=== PATIENT | female | born 1965 | race Two or more races ===

== ENCOUNTER 2024-04-17 19:29 | Inpatient (IN) | payer MEDICAID, OTHER ==
[~2024-04-17] VITALS: Ht 170.2 cm; Wt 105.8 kg
[2024-04-17 20:35] LABS: Basophils # (auto) 0 10 ^3/uL (0-0.2); Basophils % (auto) 0.4 % (0.0-2.0); Eosinophils # (auto) 0.1 10 ^3/uL (0-0.8); Eosinophils % (auto) 1.4 % (0.0-7.0); Hematocrit 45.6 % (36.0-46.0); Hemoglobin 15.5 g/dL (12.2-16.2); Lymphocytes # (auto) 1.4 10 ^3/uL (0.4-5.4); Lymphocytes % (auto) 14.4 % (10.0-50.0); Mean Corpuscular Hemoglobin 31.8 pg (28.0-32.0); Mean Corpuscular Volume 93.6 fL (80.0-100.0); Monocytes # (auto) 0.5 10 ^3/uL (0-1.3); Monocytes % (auto) 5.1 % (0.0-12.0); Neutrophils # (auto) 7.5 10 ^3/uL (1.6-8.6); Neutrophils % (auto) 78.7 % (37.0-80.0); Nucleated Red Blood Cells % 0.1 %; Platelet Count (auto) 230 10^3/uL (140-450); Red Blood Cells 4.87 10^6/uL (4.0-5.20); White Blood Cell 9.5 10^3/uL (4.4-10.8)
[2024-04-17 20:48] LABS: Chloride 111 mmol/L (98-107); Potassium 3.6 mmol/L (3.5-5.1); Sodium 144 mmol/L (136-145)
[2024-04-17 20:49] LABS: Anion Gap 9 (5-15); Carbon Dioxide 24 mmol/L (20-31)
[2024-04-17 20:50] LABS: Calcium 10.1 mg/dL (8.7-10.4)
[2024-04-17 20:54] LABS: Glucose 128 mg/dL (74-106)
[2024-04-17 20:55] LABS: BUN/Creatinine Ratio 13.3 (10.0-20.0); Blood Urea Nitrogen 13 mg/dL (9-23)
[2024-04-17] MEDS: MORPHINE SULFATE 4 MG/ML SYR/VIAL IV ONE (21:26)
[2024-04-17] MEDS: ONDANSETRON HCL 4 MG/2 ML VIAL IV ONE (21:26)
[2024-04-17] MEDS: SODIUM CHLORIDE 0.9% 1,000 ML IV ONE (21:27)
[2024-04-17] MEDS ORDERED: hydrALAZINE HCL 20 MG/ML VL IV PRN (23:15)
[2024-04-17] MEDS ORDERED: NITROGLYCERIN 0.4 MG SL TAB SL PRN (23:15)
[2024-04-17] MEDS ORDERED: MORPHINE SULFATE INJ 2 MG/ml SYRG IV PRN ×2 (23:15)
[2024-04-17] MEDS ORDERED: ONDANSETRON HCL 4 MG/2 ML VIAL IV PRN (23:15)
[2024-04-17] MEDS: FUROSEMIDE 40 MG/4 ML VIAL IV ONE (23:58)
[2024-04-18] VITALS (7 sets, daily range): BP systolic 117–149; BP diastolic 71–82; PULSE 57–69; RESP 14–19; TEMP 97.5–98.3; O2SAT 94–96
[2024-04-18 02:00] LABS: Urine WBC None Seen /hpf (0 - 5)
[2024-04-18 02:22] LABS: Urine Bacteria FEW /hpf (None Seen); Urine Blood Negative /uL (Negative); Urine Clarity Clear (Clear); Urine Protein, UAD Negative (Negative); Urine Specific Gravity 1.005 (1.001-1.035); Urine Urobilinogen Normal (Negative)
[2024-04-18 02:29] LABS: Urine Color Straw (Yellow)
[2024-04-18] MEDS: HYDROcodone-ACET 5/325MG TAB PO PRN (03:25)
[2024-04-18] MEDS ORDERED: IBUP-1453 PO (03:58)
[2024-04-18] MEDS: SODIUM CHLOR 0.9% PF (SALINE LOCK) 10ML VIAL/SYR IV SCH (05:38)
[2024-04-18 06:14] LABS: Basophils # (auto) 0 10 ^3/uL (0-0.2); Basophils % (auto) 0.4 % (0.0-2.0); Eosinophils # (auto) 0.1 10 ^3/uL (0-0.8); Eosinophils % (auto) 0.9 % (0.0-7.0); Hematocrit 44.1 % (36.0-46.0); Hemoglobin 14.8 g/dL (12.2-16.2); Lymphocytes # (auto) 1.6 10 ^3/uL (0.4-5.4); Lymphocytes % (auto) 16.4 % (10.0-50.0); Mean Corpuscular Hemoglobin 31.9 pg (28.0-32.0); Mean Corpuscular Hgb Conc. 33.6 g/dL (32.0-36.0); Monocytes # (auto) 0.5 10 ^3/uL (0-1.3); Neutrophils # (auto) 7.5 10 ^3/uL (1.6-8.6); Neutrophils % (auto) 77.3 % (37.0-80.0); Nucleated Red Blood Cells % 0.1 %; Platelet Count (auto) 205 10^3/uL (140-450); Red Blood Cells 4.64 10^6/uL (4.0-5.20); Red Cell Distribution Width 13.9 % (11.8-14.3); White Blood Cell 9.7 10^3/uL (4.4-10.8)
[2024-04-18 06:31] LABS: Alanine Aminotransferase 14 U/L (7-40); Alkaline Phosphatase 102 U/L (46-116); Anion Gap 9 (5-15); BUN/Creatinine Ratio 9.6 (10.0-20.0); Blood Urea Nitrogen 9 mg/dL (9-23); Calcium 9.3 mg/dL (8.7-10.4); Carbon Dioxide 25 mmol/L (20-31); Chloride 108 mmol/L (98-107); Glucose 139 mg/dL (74-106); Sodium 142 mmol/L (136-145)
[2024-04-18 06:32] LABS: Albumin 4.4 g/dL (3.2-4.8); Aspartate Aminotransferase 18 U/L (13-40); Bilirubin, Total 0.6 mg/dL (0.2-1.0)
[2024-04-18 06:33] LABS: Total Protein 7.9 g/dL (5.7-8.2)
[2024-04-18] MEDS: INFLUENZA QUAD 2023-2024 0.5 ML SYRG IM ONE (09:00)
[2024-04-18] MEDS: ACETAMINOPHEN 325 MG TAB PO PRN (11:05)
[2024-04-19] VITALS (7 sets, daily range): BP systolic 113–151; BP diastolic 57–82; PULSE 58–71; RESP 18–19; TEMP 97.8–98.3; O2SAT 94–100
[2024-04-19 05:51] LABS: Basophils # (auto) 0 10 ^3/uL (0-0.2); Basophils % (auto) 0.5 % (0.0-2.0); Eosinophils # (auto) 0.2 10 ^3/uL (0-0.8); Eosinophils % (auto) 3.5 % (0.0-7.0); Hematocrit 42.8 % (36.0-46.0); Hemoglobin 14.4 g/dL (12.2-16.2); Lymphocytes # (auto) 2.5 10 ^3/uL (0.4-5.4); Lymphocytes % (auto) 35.6 % (10.0-50.0); Mean Corpuscular Hemoglobin 32.1 pg (28.0-32.0); Mean Corpuscular Hgb Conc. 33.7 g/dL (32.0-36.0); Mean Corpuscular Volume 95.2 fL (80.0-100.0); Monocytes # (auto) 0.5 10 ^3/uL (0-1.3); Monocytes % (auto) 7.2 % (0.0-12.0); Neutrophils # (auto) 3.7 10 ^3/uL (1.6-8.6); Neutrophils % (auto) 53.2 % (37.0-80.0); Platelet Count (auto) 183 10^3/uL (140-450); Red Cell Distribution Width 13.8 % (11.8-14.3); White Blood Cell 6.9 10^3/uL (4.4-10.8)
[2024-04-19 05:59] LABS: Calcium 9.3 mg/dL (8.7-10.4); Chloride 108 mmol/L (98-107); Potassium 3.4 mmol/L (3.5-5.1); Sodium 143 mmol/L (136-145)
[2024-04-19 06:00] LABS: Anion Gap 10 (5-15); Carbon Dioxide 25 mmol/L (20-31)
[2024-04-19 06:05] LABS: BUN/Creatinine Ratio 12.7 (10.0-20.0); Blood Urea Nitrogen 10 mg/dL (9-23); Glucose 95 mg/dL (74-106)
[2024-04-19] MEDS: DOCUSATE SOD 100 MG CAP PO PRN (10:28)
[2024-04-19] MEDS ORDERED: IBUPROFEN 400 MG TAB PO PRN (14:00)
[2024-04-19] MEDS: ACETAMINOPHEN 325 MG TAB PO SCH (14:55)
[2024-04-19] MEDS: POTASSIUM CHL 20 Meq TABLET PO ONE (14:55)
[2024-04-20] VITALS (8 sets, daily range): BP systolic 129–154; BP diastolic 67–94; PULSE 60–84; RESP 18–19; TEMP 97.9–98.6; O2SAT 93–100
[2024-04-20 07:36] LABS: Chloride 110 mmol/L (98-107); Potassium 3.8 mmol/L (3.5-5.1); Sodium 143 mmol/L (136-145)
[2024-04-20 07:37] LABS: Anion Gap 5 (5-15); Calcium 9.3 mg/dL (8.7-10.4); Carbon Dioxide 28 mmol/L (20-31)
[2024-04-20 07:42] LABS: BUN/Creatinine Ratio 14.5 (10.0-20.0); Blood Urea Nitrogen 11 mg/dL (9-23); Glucose 102 mg/dL (74-106)
[2024-04-21] VITALS (7 sets, daily range): BP systolic 128–161; BP diastolic 76–91; PULSE 50–65; RESP 15–19; TEMP 37; O2SAT 92–97
== END 2024-04-21 20:05 | disposition home or self-care (01) | DRG 351 ==
LOC: EDBD 19:29 → ER 19:29 → TELE 23:18 → TELE-WESTW 04-18 03:00
PROVIDERS: ADMIT Nurse Practitioner Family; ATTEND Student in an Organized Health Care Education/Training Program
PROC: 0GBG3ZX Excision of Left Thyroid Gland Lobe, Percutaneous Approach, Diagnostic (ICD-10-PCS; principal; 2024-04-21)
DX: M75.112 Incomplete rotator cuff tear or rupture of left shoulder, not specified as traumatic (principal); J81.1 Chronic pulmonary edema; R55 Syncope and collapse; E87.6 Hypokalemia; E04.1 Nontoxic single thyroid nodule; Z82.3 Family history of stroke; Z83.3 Family history of diabetes mellitus; W01.0XXA Fall on same level from slipping, tripping and stumbling without subsequent striking against object, initial encounter; Y92.009 Unspecified place in unspecified non-institutional (private) residence as the place of occurrence of the external cause
CPT/HCPCS: 36415; 70450; 71046; 72100; 72125; 73030; 73080; 73221; 76536; 76942; 80048; 80053; 81001; 83036; 84443; 84484; 85025; 97163; G0378; J2405

== ENCOUNTER 2024-06-18 22:53 | Inpatient (IN) | payer MEDICAID ==
[~2024-06-18] VITALS: Ht 167.6 cm; Wt 100.9 kg
[~2024-06-18 22:53] MED LIST: IBUP-1453 PO
[2024-06-18 23:52] LABS: Basophils # (auto) 0 10 ^3/uL (0-0.2); Basophils % (auto) 0.6 % (0.0-2.0); Eosinophils # (auto) 0.2 10 ^3/uL (0-0.8); Eosinophils % (auto) 2.6 % (0.0-7.0); Hematocrit 47.2 % (36.0-46.0); Hemoglobin 16.1 g/dL (12.2-16.2); Lymphocytes # (auto) 3.1 10 ^3/uL (0.4-5.4); Lymphocytes % (auto) 35.4 % (10.0-50.0); Mean Corpuscular Hemoglobin 32.5 pg (28.0-32.0); Mean Corpuscular Hgb Conc. 34.2 g/dL (32.0-36.0); Mean Corpuscular Volume 95.2 fL (80.0-100.0); Monocytes # (auto) 0.7 10 ^3/uL (0-1.3); Monocytes % (auto) 8.1 % (0.0-12.0); Neutrophils # (auto) 4.7 10 ^3/uL (1.6-8.6); Neutrophils % (auto) 53.3 % (37.0-80.0); Nucleated Red Blood Cells % 0.3 %; Platelet Count (auto) 232 10^3/uL (140-450); Red Blood Cells 4.95 10^6/uL (4.0-5.20); Red Cell Distribution Width 14.2 % (11.8-14.3); White Blood Cell 8.8 10^3/uL (4.4-10.8)
[2024-06-19 00:05] LABS: Alanine Aminotransferase 17 U/L (7-40); Albumin 4.8 g/dL (3.2-4.8); Anion Gap 7 (5-15); Aspartate Aminotransferase 15 U/L (13-40); BUN/Creatinine Ratio 21.3 (10.0-20.0); Blood Urea Nitrogen 17 mg/dL (9-23); Calcium 10.3 mg/dL (8.7-10.4); Carbon Dioxide 28 mmol/L (20-31); Chloride 107 mmol/L (98-107); Potassium 4.8 mmol/L (3.5-5.1); Sodium 142 mmol/L (136-145)
[2024-06-19 00:06] LABS: Bilirubin, Total 0.3 mg/dL (0.2-1.0)
[2024-06-19 00:22] LABS: Alkaline Phosphatase 118 U/L (46-116); Glucose 113 mg/dL (74-106); Total Protein 8.6 g/dL (5.7-8.2)
[2024-06-19 00:30] LABS: Lactic Acid w/Reflex 2.3 mmol/L (0.4-2.0)
[2024-06-19 00:55] LABS: Urine Bacteria FEW /hpf (None Seen); Urine Blood TRACE /uL (Negative); Urine Budding Yeast OCCASIONAL /hpf (None Seen); Urine Clarity Clear (Clear); Urine Color Light-Yellow (Yellow); Urine Mucus FEW (None Seen); Urine Protein, UAD Negative (Negative); Urine Specific Gravity 1.026 (1.001-1.035); Urine Urobilinogen Normal (Negative); Urine WBC <1 /hpf (0 - 5)
[2024-06-19 01:00] VITALS: PULSE 72; RESP 18; O2SAT 96
[2024-06-19] MEDS: cloNIDine HCL 0.1 MG TAB PO ONE (01:15)
[2024-06-19 01:31] LABS: Lipase 54 U/L (12-53)
[2024-06-19] MEDS ORDERED: SODIUM CHLORIDE 0.9% 1,000 ML IV ONE (01:45)
--- NOTE | 2024-06-19 02:24 | ED.PDOC ---
HPI Comments This patient is a morbidly obese 58-year-old female who arrives to the ED today for evaluation of dizziness, leg pain and headache since this morning due to elevated blood pressure concerns. Patient states she has had hypertension in the past but has not taken medication forward and quite some time. Patient states it blood pressure this morning was 200+ over 120+. At arrival, patient's best blood pressure was 192/99. Patient denies any fever nausea or vomiting. Chief Complaint: High Blood Pressure Time Seen by MD: 23:13 Primary Care Provider: NONE Reviewed Notes: Nurses Notes Allergies: Coded Allergies: NO KNOWN ALLERGIES (Unverified , 04/17/24) Home Meds Reported Medications Ibuprofen (Ibuprofen) 400 Mg Tab, 1 TAB PO Q6HPRN, #20 TAB 04/18/24 Information Source: Patient Mode of Arrival: Ambulatory Severity: Moderate Timing: Hours Duration: Since onset Prehospital treatment: None Associated Signs and Symptoms: Other (Dizziness and generalized weakness) Past Medical History PAST MEDICAL HISTORY: HTN (Nonmedicated), Denies Surgical History: Denies all surgeries PERSONAL BANKING OFFICER History: Denies all PERSONAL BANKING OFFICER Hx Family History Family History: Reviewed,noncontributory to illness Social History Smoker: Non-Smoker Alcohol: Denies ETOH Use Drugs: Denies Drug Use Lives In: Home Constitutional: reports: weakness; denies: chills, diaphoresis, fatigue, fever, malaise, sweats, others EENTM: reports: blurred vision; denies: double vision, ear bleeding, ear discharge, ear drainage, ear pain, ear ringing, eye pain, eye redness, hearing loss, mouth pain, mouth swelling, nasal discharge, nose bleeding, nose congestion, nose pain, photophobia, tearing, throat pain, throat swelling, voice changes, others Respiratory: denies: cough, hemoptysis, orthopnea, SOB at rest, shortness of breath, SOB with excertion, stridor, wheezing, others Cardiovascular: denies: chest pain, dizzy spells, diaphoresis, Dyspnea on exertion, edema, irregular heart beat, left arm pain, lightheadedness, palpitations, PND, syncope, others Gastrointestinal: denies: abdomen distended, abdominal pain, blood streaked bowels, constipated, diarrhea, dysphagia, difficulty swallowing, hematemesis, melena, nausea, poor appetite, poor fluid intake, rectal bleeding, rectal pain, vomiting, others Genitourinary: denies: abnormal vagina bleeding, burning, dyspareunia, dysuria, flank pain, frequency, hematuria, incontinence, pain, , vagina discharge, urgency, others Neurological: reports: dizziness, headache; denies: fainting, left sided numbness, left sided weakness, numbness, paresthesia, pre-existing deficit, right sided numbness, right sided weakness, seizure, speech problems, tingling, tremors, weakness, others Musculoskeletal: denies: back pain, gout, joint pain, joint swelling, muscle pain, muscle stiffness, neck pain, others Integumetry: denies: bruises, change in color, change in hair/nails, dryness, l aceration, lesions, lumps, rash, wounds, others Allergic/Immunocompromised: denies: Difficulty Healing, Frequent Infections, Hives, Itching, others Hematologic/Lymphatic: denies: anemia, blood clots, easy bleeding, easy bruising, swollen glands, others Endocrine: denies: excessive hunger, excessive sweating, excessive thirst, excessive urination, flushing, intolerance to cold, intolerance to heat, unexplained weight gain, unexplained weight loss, others Psychiatric: denies: anxiety, bipolar disorder, depression, hopeless, panic disorder, schizophrenia, sleepless, suicidal, others Physical Exam General Appearance: Moderate Distress (Due to dizziness, blurred vision and concerns related to her blood pressure.), Obese HEENT: Normal ENT Inspection, Pharynx Normal, TMs Normal, Other (Patient complains of bilateral blurred vision. Unremarkable evaluation of bilateral globes. PERRLA, EOMI appreciated.) Neck: Full Range of Motion, Non-Tender, Normal, Normal Inspection Respiratory: Chest Non-Tender, Lungs Clear, No Accessory Muscle Use, No Respiratory Distress, Normal Breath Sounds Cardiovascular: No Edema, No JVD, No Murmur, No Gallop, Normal Peripheral Pulses, Regular Rate/Rhythm Breast Exam: Deferred Gastrointestinal: No Organomegaly, Non Tender, No Pulsatile Mass, Normal Bowel Sounds, Soft Genitalia: Deferred Pelvic: Deferred Rectal: Deferred Extremities: No calf tenderness, Normal capillary refill, Normal inspection, Normal range of motion, Non-tender, No pedal edema Neurologic: Alert, government minister II-XII nml as Tested, No Motor Deficits, Normal Affect, Normal Mood, No Sensory Deficits Cerebellar Function: Normal Reflexes: Normal Skin: Dry, Normal Color, Warm Lymphatic: No Adenopathy Was a procedure done? Was a procedure done?: No CP Differential Dx Differential Diagnosis: A-fib, A-Flutter, Anxiety / Panic Attack, AV Block 1st Degree, WI Differential Diagnosis: CHF, HTN Essential X-Ray, Labs, Meds, VS Vital Signs Date Time Temp Pulse Resp B/P (MAP) Pulse Ox O2 Delivery O2 Flow Rate FiO2 06/19/24 01:15 198/109 06/19/24 01:00 72 18 96 Room Air* 0 21 06/19/24 01:00 98.2 72 18 198/109 (138) 94 98.2 06/18/24 23:21 67 06/18/24 23:10 98.0 71 18 192/99 (130) 96 Lab Test 06/19/24 01:16 06/18/24 23:29 06/18/24 23:17 Range/Units Lactic Acid Level 2.5 *H 2.3 *H 0.4-2.0 mmol/L White Blood Count 8.8 4.4-10.8 10^3/uL Red Blood Count 4.95 4.0-5.20 10^6/uL Hemoglobin 16.1 12.2-16.2 g/dL Hematocrit 47.2 H 36.0-46.0 % Mean Corpuscular Volume 95.2 80.0-100.0 fL Mean Corpuscular Hemoglobin 32.5 H 28.0-32.0 pg Mean Corpuscular Hemoglobin Concent 34.2 32.0-36.0 g/dL Red Cell Distribution Width 14.2 11.8-14.3 % Platelet Count 232 140-450 10^3/uL Mean Platelet Volume 9.8 6.9-10.8 fL Neutrophils (%) (Auto) 53.3 37.0-80.0 % Lymphocytes (%) (Auto) 35.4 10.0-50.0 % Monocytes (%) (Auto) 8.1 0.0-12.0 % Eosinophils (%) (Auto) 2.6 0.0-7.0 % Basophils (%) (Auto) 0.6 0.0-2.0 % Neutrophils # (Auto) 4.7 1.6-8.6 10 ^3/uL Lymphocytes # (Auto) 3.1 0.4-5.4 10 ^3/uL Monocytes # (Auto) 0.7 0-1.3 10 ^3/uL Eosinophils # (Auto) 0.2 0-0.8 10 ^3/uL Basophils # (Auto) 0 0-0.2 10 ^3/uL Nucleated Red Blood Cells 0.3 % Sodium Level 142 136-145 mmol/L Potassium Level 4.8 3.5-5.1 mmol/L Chloride Level 107 98-107 mmol/L Carbon Dioxide Level 28 20-31 mmol/L Anion Gap 7 5-15 Blood Urea Nitrogen 17 9-23 mg/dL Creatinine 0.80 0.550-1.02 mg/dL Glomerular Filtration Rate Calc 86 >90 mL/min BUN/Creatinine Ratio 21.3 H 10.0-20.0 Serum Glucose 113 H 74-106 mg/dL Calcium Level 10.3 8.7-10.4 mg/dL Total Bilirubin 0.3 0.2-1.0 mg/dL Aspartate Amino Transferase (AST) 15 13-40 U/L Alanine Aminotransferase (ALT) 17 7-40 U/L Alkaline Phosphatase 118 H 46-116 U/L Troponin I High Sensitivity 3 L </=34 ng/L Total Protein 8.6 H 5.7-8.2 g/dL Albumin 4.8 3.2-4.8 g/dL Lipase 54 H 12-53 U/L Urine Color Light-yellow Yellow Urine Clarity Clear Clear Urine pH 6.0 5.0-9.0 Urine Specific [place] 1.026 1.001-1.035 Urine Protein Negative Negative Urine Ketones Negative Negative Urine Blood Trace H Negative /uL Urine Nitrite Negative Negative Urine Bilirubin Negative Negative Urine Urobilinogen Normal Negative mg/dL Urine Leukocyte Esterase Negative Negative /uL Urine RBC 2 0 - 4 /hpf Urine WBC <1 0 - 5 /hpf Urine Squamous Epithelial Cells Few <5 /hpf Urine Bacteria Few H None Seen /hpf Urine Mucus Few None Seen Urine Yeast (Budding) Occasional None Seen /hpf Urine Glucose Normal Normal mg/dL Current Medications Medications (Trade) Dose Ordered Sig/Marko Route Start Time Stop Time Status Last Admin Clonidine HCl (Catapres Tablet) 0.2 mg ONCE ONCE PO 06/18/24 23:30 06/18/24 23:31 DC 06/19/24 01:15 X-Ray, Labs, Meds, VS Comment All studies performed the ED were evaluated by me personally. Serum laboratories were remarkable for an elevated lactic acid that required some time to rectify. Additionally, patient's lipase level is elevated confirm a pancreatitis. EKG revealed a sinus rhythm of 67 with a nonspecific intra ventricular conduction delay and a baseline wander in lead V2. ND interval of 125 and QT interval of 399. This patient does not have proper support to establish medication to address her significant blood pressure concerns. Patient will be admitted for medication management as well as a cardiac consult tomorrow to assess her cardiac function. Additionally, we will continue to manage the patient's acute pancreatitis event. Time of 1ST Reevaluation: 02:32 Reevaluation 1ST: Improved Consultation: PCP, Cardiology Patient Education/Counseling: Diagnosis, Treatment Family Education/Counseling: Diagnosis, Treatment Departure 1 Departure Time of Disposition: 02:33 Impression: Primary Impression: Hypertensive urgency Additional Impression: Pancreatitis Disposition: 09 ADMITTED INPATIENT Condition: Stable Discharged With: Self Critical Care Note Critical Care Time?: No Stability Stability form required: No Heart Score Heart Score: Heart Score Response (Comments) Value History Slightly Suspicious 0 EKG Repolarization Disturb 1 Age 45-64 1 Risk Factors 1 or 2 risk factors 1 Troponin Normal limit 0 Total 3 RAINA ARNETT PAC Jun 19, 2024 02:24
[2024-06-19] MEDS ORDERED: NITROGLYCERIN 0.4 MG SL TAB SL PRN (03:15)
[2024-06-19] MEDS ORDERED: MORPHINE SULFATE INJ 2 MG/ml SYRG IV PRN ×2 (03:15)
[2024-06-19] MEDS ORDERED: ACETAMINOPHEN 325 MG TAB PO PRN (03:15)
--- NOTE | 2024-06-19 04:01 | DVHHPRES ---
History of Present Illness Resident Creating Document: ROSALIND CLIFTON RESIDENT Reason for Visit: Dizziness and generalized weakness History of Present Illness 58-year-old female patient with past medical history of of hypertension, nodular thyroid disease seen on CT scan 1 month ago, anxiety, type 2 obesity and possible history of transient ischemic attack and frozen shoulder after a fall 2 months ago. She presents to the emergency department with complaints of dizziness confusion and lower extremity weakness. The patient reports that these symptoms started yesterday while she was watching TV and attempted to stand up to go to the bathroom at which point she became dizzy and confused. She also describes episodes in the past were her body became paralyzed, and she was unable to speak for a few minutes, which is possible attributed to TIA. Upon arrival, her blood pressure was 200/120 mmHg, consistent with hypertensive crisis, and she received clonidine to lower her blood pressure. She denies chest pain, nausea, vomiting, diarrhea or any other complaints. The patient has no primary care physician as she is in the process of obtaining medical insurance. She reports a family history of type 2 diabetes. Labs on admission revealed lactic acid 2.3, 2.5 millimole per L, glucose on 113 and normal hemoglobin A1c 5.6% 2 months ago. Lipase was normal at 54 units/liter. Heart score in this patient is 3 points which is moderate risk, ASCVD risk estimated at 20% to 25% based on age hypertension and obesity. Cardiovascular: HTN, hyperipidemia CLINICAL LAB ASSISTANT: TIA Psych: Anxiety Past Surgical History: None Family History: DM Smoke: No ALCOHOL: none Drugs: None Lives: with Family Domestic Violence: Neg Review of Systems Review of Systems Constitutional: No: Fever, Chills, Sweats, Weakness, Malaise, Other Eyes: No: Pain, Vision change, Conjunctivae inflammation, Eyelid inflammation, Other, Redness ENT: No: Ear pain, Ear discharge, Nose pain, Nose discharge, Nose congestion, Mouth pain, Mouth swelling, Throat pain, Throat swelling, Other Respiratory: No Wheezing, Hemoptysis, Pleuritic Pain, Sputum, Wheezing, Other Cardiovascular: No: Chest Pain, Palpitations, Orthopnea, Paroxysmal Noc. Dyspnea, Edema, Lt Headedness, Other Gastrointestinal: No: Nausea, Vomiting, Abdominal Pain, Diarrhea, Constipation, Melena, Hematochezia, Other Musculoskeletal: No: other, neck pain, shoulder pain, arm pain, back pain, hand pain, leg pain, foot pain Neurological: Reports dizziness and confusion. Described previous episodes of paralysis and inability to speak for minutes but denies current focal deficits. Allergies: Coded Allergies: NO KNOWN ALLERGIES (Unverified , 04/17/24) Medications Current Medications Medications Dose Ordered Sig/Marko Route Start Time Stop Time Status Last Admin Dose Admin Acetaminophen 650 mg Q6HP PRN PO 06/19/24 03:15 Morphine Sulfate 2 mg Q4HPRN PRN IV 06/19/24 03:15 Nitroglycerin 0.4 mg Q5MINP PRN SL 06/19/24 03:15 Morphine Sulfate 2 mg Q30M PRN IV 06/19/24 03:15 Exam Vital Signs Vital Signs Date Time Temp Pulse Resp B/P (MAP) Pulse Ox O2 Delivery O2 Flow Rate FiO2 06/19/24 01:15 198/109 06/19/24 01:00 72 18 96 Room Air* 0 21 06/19/24 01:00 98.2 98.2 Exam Examination General Appearance: Alert, Oriented X3, Cooperative, No acute distress HEENT: EOMI Respiratory: Clear to auscultation, Normal air movement Cardiovascular: Regular rate, Normal S1, Normal S2 Abdominal: Normal bowel sounds Extremities: No cyanosis, No edema, Normal pulses, No tenderness/swelling Skin: No rashes, No breakdown Neuro: Normal gait, Normal speech, Strength at 5/5 X4 ext, Normal tone, Sensation intact, Cranial nerves 3-12 NL, Reflexes 2+, negative Romberg sign Psych/Mental Status: Mental status NL, Mood NL Labs/Xrays Labs Test 06/19/24 01:16 06/18/24 23:29 06/18/24 23:17 Range/Units Lactic Acid Level 2.5 *H 0.4-2.0 mmol/L White Blood Count 8.8 4.4-10.8 10^3/uL Red Blood Count 4.95 4.0-5.20 10^6/uL Hemoglobin 16.1 12.2-16.2 g/dL Hematocrit 47.2 H 36.0-46.0 % Mean Corpuscular Volume 95.2 80.0-100.0 fL Mean Corpuscular Hemoglobin 32.5 H 28.0-32.0 pg Mean Corpuscular Hemoglobin Concent 34.2 32.0-36.0 g/dL Red Cell Distribution Width 14.2 11.8-14.3 % Platelet Count 232 140-450 10^3/uL Mean Platelet Volume 9.8 6.9-10.8 fL Neutrophils (%) (Auto) 53.3 37.0-80.0 % Lymphocytes (%) (Auto) 35.4 10.0-50.0 % Monocytes (%) (Auto) 8.1 0.0-12.0 % Eosinophils (%) (Auto) 2.6 0.0-7.0 % Basophils (%) (Auto) 0.6 0.0-2.0 % Neutrophils # (Auto) 4.7 1.6-8.6 10 ^3/uL Lymphocytes # (Auto) 3.1 0.4-5.4 10 ^3/uL Monocytes # (Auto) 0.7 0-1.3 10 ^3/uL Eosinophils # (Auto) 0.2 0-0.8 10 ^3/uL Basophils # (Auto) 0 0-0.2 10 ^3/uL Nucleated Red Blood Cells 0.3 % Sodium Level 142 136-145 mmol/L Potassium Level 4.8 3.5-5.1 mmol/L Chloride Level 107 98-107 mmol/L Carbon Dioxide Level 28 20-31 mmol/L Anion Gap 7 5-15 Blood Urea Nitrogen 17 9-23 mg/dL Creatinine 0.80 0.550-1.02 mg/dL Glomerular Filtration Rate Calc 86 >90 mL/min BUN/Creatinine Ratio 21.3 H 10.0-20.0 Serum Glucose 113 H 74-106 mg/dL Calcium Level 10.3 8.7-10.4 mg/dL Total Bilirubin 0.3 0.2-1.0 mg/dL Aspartate Amino Transferase (AST) 15 13-40 U/L Alanine Aminotransferase (ALT) 17 7-40 U/L Alkaline Phosphatase 118 H 46-116 U/L Troponin I High Sensitivity 3 L </=34 ng/L Total Protein 8.6 H 5.7-8.2 g/dL Albumin 4.8 3.2-4.8 g/dL Lipase 54 H 12-53 U/L Urine Color Light-yellow Yellow Urine Clarity Clear Clear Urine pH 6.0 5.0-9.0 Urine Specific [place] 1.026 1.001-1.035 Urine Protein Negative Negative Urine Ketones Negative Negative Urine Blood Trace H Negative /uL Urine Nitrite Negative Negative Urine Bilirubin Negative Negative Urine Urobilinogen Normal Negative mg/dL Urine Leukocyte Esterase Negative Negative /uL Urine RBC 2 0 - 4 /hpf Urine WBC <1 0 - 5 /hpf Urine Squamous Epithelial Cells Few <5 /hpf Urine Bacteria Few H None Seen /hpf Urine Mucus Few None Seen Urine Yeast (Budding) Occasional None Seen /hpf Urine Glucose Normal Normal mg/dL Assessment/Plan Assessment/Plan #Hypertensive crisis, likely hypertensive emergency due to her neurological symptoms, heart score 3 points, ASCVD risk at 20-25% -continue blood pressure control -reduced map by no more than 25% to avoid ischemia of vital organs -Next 2-6 hours gradually lower blood pressure to 160/100 mmHg -echocardiogram -TSH -lipid panel -urinalysis -chest x-rays -EKG #History of possible transient ischemic attack -based on history of episodic paralysis and inability to speak lasting minutes -head ct -carotid doppler us -orthostatic vital signs #Type 2 obesity -lifestyle modification counseling and dietary habits modification counseling #History of nodular thyroid cyst -monitor #Anxiety -monitor Case discussed with Dr. Bailon Goals of care discussed with the patient for 43 minutes Code status: Full code Plan discussed with: Patient My Orders Orders - ROSALIND CLIFTON RESIDENT Procedure Category Date Status Time Admit ADMIT 06/19/24 Transmitted 03:07 Allergies LEONCIO 06/19/24 In Process 03:07 Code Status CODE 06/19/24 Transmitted 03:07 Fall Risk Precautions LEONCIO 06/19/[address] 03:07 Complete Blood Count LAB 06/19/24 Logged 04:00 Comprehensive LAB 06/19/24 Logged Metabolic Panel 04:00 Npo (Nothing By DIET 06/19/24 Transmitted Mouth) Diet Breakfast Echo 2d Mode Cardiac US 06/19/24 Logged DOP 03:07 Acetaminophen Tablet PHA 06/19/24 In Process (Tylenol Tablet) 03:15 Morphine Sulfate PHA 06/19/24 In Process Injection 03:15 Nitroglycerin PHA 06/19/24 In Process Sublingual (Ntrostat 03:15 Morphine Sulfate PHA 06/19/24 In Process Injection 03:15 Oxygen By Nasal RT 06/19/24 Transmitted Cannula 03:07 Stat Ekg For Chest LEONCIO 06/19/24 In Process Pain 03:07 Notify Md Of Changes LEONCIO 06/19/24 In Process From Base 03:07 Geospatial Image Analyst For [facility] 06/19/24 In Process 24 Hours 03:07 Emergency Dysrhythmia [facility] 06/19/24 In Process Protocol 03:07 Rhythm Strips Once [facility] 06/19/24 In Process Every Shift 03:07 Date of Service: Jun 19, 2024 Billing Provider: HAYLEY BAILON MD Common Visit Codes: [id number] INP/OBS CARE (HIGH) ROSALIND CLIFTON RESIDENT Jun 19, 2024 04:01 HAYLEY BAILON MD Jun 21, 2024 11:59
[2024-06-19 04:40] VITALS: BP 139/93; PULSE 76; RESP 18; TEMP 98; O2SAT 95
--- NOTE | 2024-06-19 04:58 | DVH ---
CHEST RADIOGRAPH Indication: Baseline lung status Technique: Single frontal view of the chest was obtained COMPARISON: None FINDINGS: Lines and Tubes: None Lungs: Diffuse increased interstitial prominence. Pleura: No effusion. No pneumothorax. Cardiomediastinal contours: Cardiomegaly. Bones: Unremarkable IMPRESSION: Mild pulmonary vascular congestion, unchanged.
[2024-06-19] MEDS: LACTATED RINGER'S 1,800 ML IV ONE (05:23)
--- NOTE | 2024-06-19 05:23 | DVH ---
CT HEAD WITHOUT CONTRAST INDICATION: R/O STROKE EXAM DATE: 06/19/2024 04:30 AM COMPARISON: CT HEAD WITHOUT CONTRAST on DOS: 04/17/24, CT CERVICAL WITHOUT CONTRAST on DOS: 04/17/24 RADIATION DOSE: CTDIvol: 56.16 mGy, DLP: 1 105.02 mGy*cm PROCEDURE: Noncontrast CT imaging of the head was performed. All CT scans at this medical facility are performed using dose modulation techniques as appropriate t o a performed exam including the following: Automated exposure control was utilized; adjustment of th e MA and/or KV according to patient size; and use of iterative reconstruction technique. FINDINGS: Posterior fossa demonstrates a 4th ventricle to me midline without mass impression. The ventricles a ppear appropriate in size and symmetry. No intracranial mass lesion, extra-axial fluid collection, or midline shift. The calvarium appears intact. IMPRESSION: 1. No acute findings.
[2024-06-19] MEDS: NIFEdipine ER 30 MG TAB PO SCH (05:30)
[2024-06-19] MEDS: LACTATED RINGER'S 1,000 ML IV SCH (06:41)
[2024-06-19 07:31] LABS: Basophils # (auto) 0 10 ^3/uL (0-0.2); Basophils % (auto) 0.4 % (0.0-2.0); Eosinophils # (auto) 0.2 10 ^3/uL (0-0.8); Eosinophils % (auto) 2.3 % (0.0-7.0); Hematocrit 41.1 % (36.0-46.0); Hemoglobin 14.2 g/dL (12.2-16.2); Lymphocytes # (auto) 1.9 10 ^3/uL (0.4-5.4); Mean Corpuscular Hemoglobin 32.8 pg (28.0-32.0); Mean Corpuscular Hgb Conc. 34.5 g/dL (32.0-36.0); Monocytes # (auto) 0.4 10 ^3/uL (0-1.3); Monocytes % (auto) 6.4 % (0.0-12.0); Neutrophils # (auto) 4.2 10 ^3/uL (1.6-8.6); Neutrophils % (auto) 62.9 % (37.0-80.0); Nucleated Red Blood Cells % 0.2 %; Platelet Count (auto) 218 10^3/uL (140-450); Red Blood Cells 4.33 10^6/uL (4.0-5.20); Red Cell Distribution Width 13.8 % (11.8-14.3); White Blood Cell 6.6 10^3/uL (4.4-10.8)
[2024-06-19 07:34] LABS: Alanine Aminotransferase 15 U/L (7-40); Albumin 4.3 g/dL (3.2-4.8); Alkaline Phosphatase 109 U/L (46-116); Anion Gap 8 (5-15); BUN/Creatinine Ratio 22.4 (10.0-20.0); Blood Urea Nitrogen 15 mg/dL (9-23); Calcium 9.6 mg/dL (8.7-10.4); Carbon Dioxide 26 mmol/L (20-31); Cholesterol 174 mg/dL (< 200); Glucose 100 mg/dL (74-106); HDL Cholesterol 43 mg/dL (40-59); Potassium 3.9 mmol/L (3.5-5.1); Sodium 142 mmol/L (136-145); Triglycerides 133 mg/dL (< 150)
[2024-06-19 07:35] LABS: Bilirubin, Total 0.3 mg/dL (0.2-1.0); Total Protein 7.6 g/dL (5.7-8.2)
[2024-06-19 07:37] LABS: Aspartate Aminotransferase 9 U/L (13-40); Chloride 108 mmol/L (98-107); LDL Cholesterol 115 mg/dL (< 100)
[2024-06-19 08:00] VITALS: PULSE 88; RESP 15; O2SAT 99
--- NOTE | 2024-06-19 12:05 | DVH ---
Carotid Duplex Clinical History: Rule out stroke Comparison: None Technique: Duplex Doppler evaluation of the extracranial carotid and vertebral arteries including color Doppler and spectral/pulsed waveform analysis was performed. Findings: RIGHT SIDE: The peak systolic velocities are 45 cm/s in the CCA, 95 cm/s in the ICA. The ICA/CCA ratio is 2.1. The external carotid artery is patent with peak systolic velocity of 52 cm/s proximally. There is appropriate antegrade flow in the right vertebral artery. LEFT SIDE: The peak systolic velocities are 48 cm/s in the CCA, 85 cm/s in the ICA. The ICA/CCA ratio is 1.8. The external carotid artery is patent with peak systolic velocity of 44 cm/s proximally. There is appropriate antegrade flow in the left vertebral artery. IMPRESSION: 1. Less than 50% stenosis of the right internal carotid artery. 2. No hemodynamically significant stenosis noted in the left carotid system. Reference: Radiology 2003; [id number] Normal ICA PSV is <125 cm/sec and no plaque or intimal thickening is visible sonographically additional criteria include ICA/CCA PSV ratio <2.0 and ICA EDV <40 cm/sec <50% ICA stenosis ICA PSV is <125 cm/sec and plaque or intimal thickening is visible sonographically additional criteria include ICA/CCA PSV ratio <2.0 and ICA EDV <40 cm/sec 50-69% ICA stenosis ICA PSV is 125-230 cm/sec and plaque is visible sonographically additional criteria include ICA/CCA PSV ratio of 2.0-4.0 and ICA EDV of 40-100 cm/sec 70% ICA stenosis but less than near occlusion ICA PSV is >230 cm/sec and visible plaque and luminal narrowing are seen at lema-scale and color Dopp ler ultrasound (the higher the Doppler parameters lie above the threshold of 230 cm/sec, the greater the likelihood of severe disease) additional criteria include ICA/CCA PSV ratio >4 and ICA EDV >100 cm/sec
[2024-06-19 12:48] LABS: COVID19 ANTIGEN SOFIA FIA NEGATIVE (NEGATIVE)
[2024-06-19 12:55] LABS: Urine Bacteria None Seen /hpf (None Seen)
[2024-06-19 12:56] LABS: Rapid Influenza A Negative (Negative); Rapid Influenza B Negative (Negative)
[2024-06-19 13:23] LABS: Urine Blood Negative /uL (Negative); Urine Clarity Clear (Clear); Urine Color Light-Yellow (Yellow); Urine Mucus FEW (None Seen); Urine Protein, UAD Negative (Negative); Urine Specific Gravity 1.013 (1.001-1.035); Urine Urobilinogen Normal (Negative); Urine WBC 1 /hpf (0 - 5)
[2024-06-19 13:32] LABS: Amphetamine Screen, Urine Neg (NEGATIVE)
[2024-06-19 13:33] LABS: Barbiturate Scree,Urine Neg (NEGATIVE); Benzodiazephine Screen, Urine Neg (NEGATIVE); Cannabinoid Screen, Urine Neg (NEGATIVE); Cocaine Screen, Urine Neg (NEGATIVE); Opiate Scree,Urine Neg (NEGATIVE); Phencyclidine Screen, Urine Neg (NEGATIVE)
[2024-06-19] MEDS ORDERED: NIFE1TAB30 PO (14:58)
[2024-06-19 15:10] VITALS: TEMP 97.7
[2024-06-19 16:00] VITALS: BP 145/73; PULSE 71; RESP 18; O2SAT 96
--- NOTE | 2024-06-19 22:31 | DVHDSRES ---
Discharge Summary Date of Admission Resident Creating Document: CARLOS ALBERTO BROOKS RESIDENT Jun 19, 2024 at 03:07 Date of Discharge: Jun 19, 2024 Admitting Diagnosis Dizziness Wounds: no wounds Labs/Diagnostic Data: Laboratory Results Test 06/19/24 12:31 06/19/24 11:54 06/19/24 11:51 06/19/24 06:16 Urine Color Light-yellow (Yellow) Urine Clarity Clear (Clear) Urine pH 6.0 (5.0-9.0) Urine Specific [place] 1.013 (1.001-1.035) Urine Protein Negative (Negative) Urine Ketones Negative (Negative) Urine Blood Negative /uL (Negative) Urine Nitrite Negative (Negative) Urine Bilirubin Negative (Negative) Urine Urobilinogen Normal mg/dL (Negative) Urine Leukocyte Esterase Negative /uL (Negative) Urine RBC <1 /hpf (0 - 4) Urine WBC 1 /hpf (0 - 5) Urine Squamous Epithelial Cells Few /hpf (<5) Urine Bacteria None seen /hpf (None Seen) Urine Mucus Few (None Seen) Urine Glucose Normal mg/dL (Normal) Urine Opiates Screen Neg (NEGATIVE) Urine Fentanyl Screen Neg (NEGATIVE) Urine Barbiturates Screen Neg (NEGATIVE) Urine Phencyclidine Screen Neg (NEGATIVE) Urine Amphetamines Screen Neg (NEGATIVE) Urine Benzodiazepines Screen Neg (NEGATIVE) Urine Cocaine Screen Neg (NEGATIVE) Urine Cannabinoids Screen Neg (NEGATIVE) Influenza Type A Antigen Negative (Negative) Influenza Type B Antigen Negative (Negative) SARS-CoV-2 Antigen (Rapid) Negative (NEGATIVE) Lactic Acid Level 1.2 mmol/L (0.4-2.0) White Blood Count 6.6 10^3/uL (4.4-10.8) Red Blood Count 4.33 10^6/uL (4.0-5.20) Hemoglobin 14.2 g/dL (12.2-16.2) Hematocrit 41.1 % (36.0-46.0) Mean Corpuscular Volume 95.0 fL (80.0-100.0) Mean Corpuscular Hemoglobin 32.8 pg (28.0-32.0) Mean Corpuscular Hemoglobin Concent 34.5 g/dL (32.0-36.0) Red Cell Distribution Width 13.8 % (11.8-14.3) Platelet Count 218 10^3/uL (140-450) Mean Platelet Volume 10.0 fL (6.9-10.8) Neutrophils (%) (Auto) 62.9 % (37.0-80.0) Lymphocytes (%) (Auto) 28.0 % (10.0-50.0) Monocytes (%) (Auto) 6.4 % (0.0-12.0) Eosinophils (%) (Auto) 2.3 % (0.0-7.0) Basophils (%) (Auto) 0.4 % (0.0-2.0) Neutrophils # (Auto) 4.2 10 ^3/uL (1.6-8.6) Lymphocytes # (Auto) 1.9 10 ^3/uL (0.4-5.4) Monocytes # (Auto) 0.4 10 ^3/uL (0-1.3) Eosinophils # (Auto) 0.2 10 ^3/uL (0-0.8) Basophils # (Auto) 0 10 ^3/uL (0-0.2) Nucleated Red Blood Cells 0.2 % Sodium Level 142 mmol/L (136-145) Potassium Level 3.9 mmol/L (3.5-5.1) Chloride Level 108 mmol/L (98-107) Carbon Dioxide Level 26 mmol/L (20-31) Anion Gap 8 (5-15) Blood Urea Nitrogen 15 mg/dL (9-23) Creatinine 0.67 mg/dL (0.550-1.02) Glomerular Filtration Rate Calc 103 mL/min (>90) BUN/Creatinine Ratio 22.4 (10.0-20.0) Serum Glucose 100 mg/dL (74-106) Calcium Level 9.6 mg/dL (8.7-10.4) Total Bilirubin 0.3 mg/dL (0.2-1.0) Aspartate Amino Transferase (AST) 9 U/L (13-40) Alanine Aminotransferase (ALT) 15 U/L (7-40) Alkaline Phosphatase 109 U/L (46-116) B-Type Natriuretic Peptide 12.48 pg/mL (0-100) Total Protein 7.6 g/dL (5.7-8.2) Albumin 4.3 g/dL (3.2-4.8) Triglycerides Level 133 mg/dL (< 150) Cholesterol Level 174 mg/dL (< 200) LDL Cholesterol 115 mg/dL (< 100) HDL Cholesterol 43 mg/dL (40-59) Vitamin B12 Level 532 pg/mL (211-911) Thyroid Stimulating Hormone (TSH) 2.96 uIU/mL (0.55-4.78) Test 06/18/24 23:29 06/18/24 23:17 Troponin I High Sensitivity 3 ng/L (</=34) Lipase 54 U/L (12-53) Urine Yeast (Budding) Occasional /hpf (None Other Laboratory Tests 06/19/24 06:16 Brief Hx & Hospital Course: Patient is a 58-year-old female with a past medical history as described below came to the ED with a chief complaint of 2 episodes dizziness in the past 24 hours prior to admission. Patient reported that the night prior [place] in the morning she tried to get up from the bed but she felt dizzy and then went back to sleep. Throughout the day she was fine and was following her routine. In the evening at home while she was sitting and watching TV she got up and she felt dizzy again. Patient felt weak in the legs. Patient denied blurry vision, numbness tingling, ataxia, motor deficits, palpitations, chest pain, was alert and oriented and denied confusion. Patient reports feeling anxious and has stress at home because of family issues. Past medical history: Hypertension, reported thyroid nodule on CT 1 month ago, anxiety, obesity, frozen left shoulder Past surgical history: None Social history: Patient lives with her partner denies smoking, alcohol, drug use Medications: Reports using over the counter ibuprofen and acetaminophen for pain relief Hospital course On admission patient had elevated blood pressure at 192/99 mmHg. In the ER patient was given 0.2 mg clonidine which brought her blood pressure under control. Twelve lead ECG showed no evidence of acute ischemia. Troponin levels were within normal limits. Head CT without contrast was done which showed no acute intracranial abnormality. Carotid Doppler showed less than 50% stenosis of the right internal carotid artery, no hemodynamically significant stenosis noted in the left carotid system. Initial labs CBC showed hemoglobin, WBC count, platelets within normal limits. BMP revealed electrolytes within normal limits and kidney function at GFR 86 mL/minute. Patient had elevated lactic acid and was started on IV fluids following which it was resolved. Orthostatic vitals signs were negative for orthostatic hypotension. Patient was given nifedipine ER 30 mg. Patient was discharged in stable condition to home and was advised to follow up in the discharge clinic in 1 week. Review of systems Patient seen and examined at the bedside. Patient is alert and oriented x4. Patient denies chest pain, palpitations, dizziness, headache, blurry vision. Patient was able to walk normally without any imbalance. Physical Examination the day of discharge Gen - no pallor, no icterus, no cyanosis, no clubbing, no LAD, no edema . Skin - Patients skin is warm and dry. HEENT - normocephalic, atraumatic, moist mucous membranes. Neck - full ROM, no LAD, no JVD. Pulmonary - B/L vesicular breath sounds. no crackles , no wheezing, no stridor. cardiovascular - normal S1,S2 heard. no murmurs heard. peripheral pulses normal radial 2+, pedal 2+. capillary refill normal <2 secs. GI - soft abdomen without tenderness to palpation. no hepatosplenomegaly. Bowel sounds normoactive Neurological - Patient is A/O X 3. Bilateral upper extremity strength 5/5, bilateral lower extremity strength 5/5, no facial droop, normal speech, no tremor, no sensory deficits. Discharge plan Patient was advised to follow up in the discharge clinic in 1 week to set up PCP and for further management of hypertension. Medication: Prescribed nifedipine ER 60 mg once daily. Goals of care discussed for 20 minutes; full code Discussed with Dr. Morin Consults/Reason for consult no consultation Operations or Procedures CT head without contrast FINDINGS: Posterior fossa demonstrates a 4th ventricle to me midline without mass impression. The ventricles appear appropriate in size and symmetry. No intracranial mass lesion, extra-axial fluid collection, or midline shift. The calvarium appears intact. IMPRESSION: No acute findings Carotid duplex IMPRESSION: 1. Less than 50% stenosis of the right internal carotid artery. 2. No hemodynamically significant stenosis noted in the left carotid system. Chest x-ray IMPRESSION: Mild pulmonary vascular congestion, unchanged. Condition at Discharge: Stable Final Diagnosis/Problems List # Hypertensive urgency # Acute Stroke ruled out # obesity # H/o nodular thyroid cyst # ?Generalised Anxiety disorder # ?Major depression disorder Discharge Disposition: Home Discharge Instruct/Medications Diet: Cardiac 2g Na,low cholest Activity: No Restrictions, As Tolerated Follow Up/Referral: Follow up in the discharge clinic in one week Medications: Nifedipine ER 60mg once daily Discharge Statement: "Patient was advised to return to the ER or call 911 if any headaches, dizziness, shortness of breath, chest pain, abdominal pain, bleeding, fevers, or worsening of medical condition. Patient was counseled about treatment plan, medications, possible side effects, patientverbalized understanding. All questions were answered to the best of my ability. This discharge took greater then 30 minutes in planning, reviewing documentation, counseling the patient, and discussing with other team members." ASSESSMENT ASSESSMENT Assessment # Hypertensive urgency # Acute Stroke ruled out # obesity # H/o nodular thyroid cyst # ?Generalised Anxiety disorder # ?Major depression disorder Addendum Addendum Addendum I was physically present for the armijo portions of the service provided to patient by THE RESIDENT. I have reviewed the documentation, discussed the case with resident and agree with the resident's documentation except as noted. Also the patient's clinical case was discussed with the patient's nurse. This medical document was created using an electronic medical record system with computerized dictation system. Although this document has been carefully reviewed, there might still be some phonetic and typographical errors. These areas are purely typographical due to imperfections of the software programs, and do not reflect any compromise in the patient's medical care. Late signature. Date of Service: Jun 19, 2024 Billing Provider: RENETTA MORIN MD Common Visit Codes: 49793-IZV/OBS DISCH DAY >30min Secondary Visit Codes: 15292-TUGRJLCS CARE PLAN 30 MINUTES (20 minutes) CARLOS ALBERTO BROOKS RESIDENT Jun 19, 2024 22:31 RENETTA MORIN MD Jun 21, 2024 10:33
--- NOTE | 2024-06-21 05:48 | ECG ---
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
[2024-06-24 07:06] LABS: Vitamin D-2 25-Hydroxy 5.2 ng/mL (.)
== END 2024-06-19 13:34 | disposition home or self-care (01) | DRG 199 ==
LOC: ER 22:53 → TELE 06-19 03:07
PROVIDERS: ATTEND Physician Assistant
DX: I16.0 Hypertensive urgency (principal); E66.01 Morbid (severe) obesity due to excess calories; E78.5 Hyperlipidemia, unspecified; Z20.822 Contact with and (suspected) exposure to COVID-19; F41.1 Generalized anxiety disorder; F32.9 Major depressive disorder, single episode, unspecified; Z86.73 Personal history of transient ischemic attack (TIA), and cerebral infarction without residual deficits; Z83.3 Family history of diabetes mellitus; Z68.35 Body mass index [BMI] 35.0-35.9, adult; Z79.899 Other long term (current) drug therapy
CPT/HCPCS: 36415; 70450; 71045; 80053; 80061; 80307; 81001; 82306; 82607; 83605; 83690; 83880; 84443; 84484; 85025; 87426; 87804; 93005; 93886; G0378